=== PATIENT | female | born 1995 | race Caucasian/White ===

== ENCOUNTER 2016-07-16 23:38 | Emergency (ER) | payer OTHER ==
[~2016-07-16] VITALS: Ht 154.9 cm; Wt 55.0 kg
[2016-07-17 00:19] VITALS: Ht 154.9 cm; Wt 55.0 kg
--- NOTE | 2016-07-17 02:48 | ERD ---
ER Documentation Chief Complaint Date/Time DATE: 07/17/16 TIME: 02:45 Chief Complaint left flank pain HPI There is a 21-year-old female who presents the emergency department today complaining of left-sided flank pain. Patient states that one week ago she found out she was and had a positive test at a clinic in [place] as well. States she was told she is 6 weeks . Patient states that yesterday she started having some vaginal bleeding and had some clots passed. States the bleeding stopped today. Denies any fevers or chills, nausea or vomiting. ROS All systems reviewed and are negative except as per history of present illness. Medications Home Meds Active Scripts Acetaminophen* (Tylophen*) 500 Mg Capsule, 1 CAP PO Q6H Y for PAIN AND OR ELEVATED TEMP, #30 CAP Prov:MARY BETH BRAUN PA-C 07/17/16 Cephalexin* (Keflex*) 500 Mg Capsule, 500 MG PO QID for 7 Days, CAP Prov:MARY BETH BRAUN PA-C 07/17/16 Allergies Allergies: Coded Allergies: No Known Allergy (Unverified , 07/17/16) PMhx/Soc Medical and Surgical Hx: pt denies Medical Hx, pt denies Surgical Hx History of Surgery: Yes (Right leg surgery) Anesthesia Reaction: No Hx Neurological Disorder: No Hx Respiratory Disorders: No Hx Cardiac Disorders: No Hx Psychiatric Problems: No Hx Miscellaneous Medical Probl: No Hx Alcohol Use: No Hx Substance Use: No Hx Tobacco Use: No Smoking Status: Never smoker Physical Exam Vitals Vital Signs Date Time Temp Pulse Resp B/P Pulse Ox O2 Delivery O2 Flow Rate FiO2 07/17/16 00:19 99.7 85 20 127/82 100 Physical Exam Const: No acute distress Head: Atraumatic Eyes: Normal Conjunctiva ENT: Normal External Ears, Nose and Mouth. Neck: Full range of motion..~ No meningismus. Resp: Clear to auscultation bilaterally Cardio: Regular rate and rhythm, no murmurs Abd: Soft, non tender, non distended. Normal bowel sounds Skin: No petechiae or rashes Back: Left-sided flank pain. No midline tenderness. No CVA tenderness Ext: No cyanosis, or edema Neur: Awake and alert Psych: Normal Mood and Affect Result Diagram: 07/17/16 0310 07/17/16 0310 Results 24 hrs Laboratory Tests Test 07/17/16 03:10 07/17/16 04:00 Alanine Aminotransferase (ALT/SGPT) 19IU/L Albumin 4.5g/dl Albumin/Globulin Ratio 1.28 Alkaline Phosphatase 88IU/L Anion Gap 17 Aspartate Amino Transf (AST/SGOT) 26IU/L Basophils # 0.110^3/ul Basophils % 0.5% Beta HCG, Quantitative 13.1mIU/ml Blood Urea Nitrogen 7mg/dl Calcium Level 9.5mg/dl Carbon Dioxide Level 26mmol/L Chloride Level 106mmol/L Creatinine 0.56mg/dl Direct Bilirubin 0.00mg/dl Eosinophils # 0.110^3/ul Eosinophils % 0.5% Globulin 3.50g/dl Glucose Level 99mg/dl Hematocrit 39.1% Hemoglobin 13.3g/dl Indirect Bilirubin 0.1mg/dl Lymphocytes # 4.110^3/ul Lymphocytes % 38.0% Mean Corpuscular Hemoglobin 31.2pg Mean Corpuscular Hemoglobin Concent 33.9g/dl Mean Corpuscular Volume 92.0fl Mean Platelet Volume 8.6fl Monocytes # 0.810^3/ul Monocytes % 7.8% Neutrophils # 5.710^3/ul Neutrophils % 53.2% Nucleated Red Blood Cells # 0.010^3/ul Nucleated Red Blood Cells % 0.0/100WBC Platelet Count 13653^3/UL Potassium Level 4.0mmol/L Red Blood Count 4.2510^6/ul Red Cell Distribution Width 13.3% Sodium Level 145mmol/L Total Bilirubin 0.1mg/dl Total Protein 8.0g/dl White Blood Count 10.710^3/ul Urine Bacteria MANY Urine Bilirubin NEGATIVE Urine Clarity SLIGHTLY CLOUDY Urine Color LT. YELLOW Urine Glucose NEGATIVE% Urine Hemoglobin 3+ Urine Ketones NEGATIVE Urine Leukocyte Esterase NEGATIVE Urine Microscopic RBC 5-10/HPF Urine Microscopic WBC 5-10/HPF Urine Nitrite POSITIVE Urine Specific [place] 1.025 Urine Squamous Epithelial Cells FEW Urine Total Protein NEGATIVE Urine Urobilinogen 2.0 E.U./dL Urine pH 6.0 DIAGNOSTIC IMAGING REPORT Patient: JACQUES AMLENDAREZ : 1995 Age: 21 Sex: F MR #: [id number] DOS: 07/17/16 0233 Ordering MD: MARY BETH BRAUN PA-C Location: [facility] Room/Bed: PROCEDURE: Obstetrical ultrasound, limited. CLINICAL INDICATION: Vaginal bleeding. TECHNIQUE: Multiple sonographic images of the pelvis were obtained utilizing a transabdominal technique. The images were reviewed on a PACS workstation. COMPARISON: None. FINDINGS: The uterus is visualized and measures 6.0 x 3.7 x 5.1 cm. No abnormal uterine mass is identified. The endometrial echo complex is homogeneous and measures 6.6 mm. No intrauterine is identified. There is no evidence for free fluid. The right ovary has a normal echotexture and measures 3.0 x 1.8 x 2.0 cm. The left ovary has a normal echotexture and measures 2.8 x 1.1 x 1.5 cm. There is normal flow to both ovaries. No adnexal masses are identified. IMPRESSION: Unremarkable pelvic ultrasound. No intrauterine or extrauterine identified. Clinical beta-hCG correlation and follow-up is recommended. .Demetris Brooks MD, MD Date Time Electronically viewed and signed by .Demetris Brooks MD, MD on 07/17/2016 03:12 .T/ CC: MARY BETH BRAUN PA-C Procedures/MDM This is a 21-year-old female who presents to the emergency department today for some vaginal bleeding that started yesterday. Patient was also complaining of flank pain. She states she had a positive test at a clinic in [place]. I obtained a urine test that was negative however patient was told that she was by her clinic and given the complaint of vaginal bleeding I did do a complete OB workup per Laboratory work shows no elevated white blood cell count. She is not anemic. Platelets are within normal limits. Sodium is mildly elevated otherwise electro lites are within normal limits. Glucose within normal limits. Electrolytes are within normal limits per UA shows negative leukocyte esterase. Positive nitrates. 5-10 white blood cells. Patient will be treated with a prescription for Keflex for urinary tract infection. Beta quant hCG is 13.1 Rh status O+ Ultrasound shows no intrauterine or extrauterine identified. Unremarkable pelvic ultrasound. There is normal flow to both ovaries. There are no adnexal masses. Clinical beta quant correlation and follow-up is recommended. Patient has a very low beta quant and she has no IUP on ultrasound. I have explained to the patient that given her vaginal bleeding she may have had a possible miscarriage failed or early normal . Patient has no abdominal pain on physical exam of low suspicion for ectopic , tubo- ovarian abscess, ovarian torsion or any acute surgical abdomen.. I explained to the patient that she needs to get a repeat beta quant in 48 hours. Patient understood Patient declined any pain meds and nausea medications here in the emergency depart. Patient will be given a prescription for Tylenol and Keflex for home. At this time the patient is stable for discharge and outpatient management. Patient should follow up with their PCP in the next 1-2 days. They may return to the emergency department sooner for any persistent or worsening of symptoms. Patient understood and agreed with the plan. Departure Diagnosis: Primary Impression: Vaginal bleeding in patient at less than 20 weeks gestation Additional Impression: UTI (urinary tract infection) Urinary tract infection type: site unspecified Hematuria presence: with hematuria Qualified Code: N39.0 - Urinary tract infection with hematuria, site unspecified Condition: MARY BETH Robertson PA-C Jul 17, 2016 02:48
--- NOTE | 2016-07-17 03:12 | RADRPT ---
PROCEDURE: Obstetrical ultrasound, limited. CLINICAL INDICATION: Vaginal bleeding. TECHNIQUE: Multiple sonographic images of the pelvis were obtained utilizing a transabdominal kisha hnique. The images were reviewed on a PACS workstation. COMPARISON: None. FINDINGS: The uterus is visualized and measures 6.0 x 3.7 x 5.1 cm. No abnormal uterine mass is identified. T he endometrial echo complex is homogeneous and measures 6.6 mm. No intrauterine is identif ied. There is no evidence for free fluid. The right ovary has a normal echotexture and measures 3.0 x 1. 8 x 2.0 cm. The left ovary has a normal echotexture and measures 2.8 x 1.1 x 1.5 cm. There is norm al flow to both ovaries. No adnexal masses are identified. IMPRESSION: Unremarkable pelvic ultrasound. No intrauterine or extrauterine identified. Clinical beta-hCG correlation and follow-up i s recommended. .Demetris Brooks MD, Date Time Electronically viewed and signed by .Demetris Brooks MD, MD on 07/17/2016 03:12 .T/
[2016-07-17 03:23] LABS: BASOPHIL # 0.1 10^3/ul (0.0-0.1); BASOPHILS % 0.5 % (0.0-2.0); EOSINOPHILS # 0.1 10^3/ul (0.0-0.5); EOSINOPHILS % 0.5 % (0.0-7.0); HEMATOCRIT 39.1 % (37.0-47.0); HEMOGLOBIN 13.3 g/dl (12.0-16.0); LYMPHOCYTES # 4.1 10^3/ul (0.8-2.9); MEAN CORPUSCULAR HEMOGLOBIN 31.2 pg (29.0-33.0); MEAN CORPUSCULAR HGB CONC 33.9 g/dl (32.0-37.0); MEAN PLATELET VOLUME 8.6 fl (7.4-10.4); MONOCYTE # 0.8 10^3/ul (0.3-0.9); MONOCYTES % 7.8 % (0.0-13.0); NEUTROPHIL # 5.7 10^3/ul (1.6-7.5); NEUTROPHILS % 53.2 % (30.0-74.0); PLATELET COUNT 338 10^3/UL (140-440); RED BLOOD COUNT 4.25 10^6/ul (4.20-5.40); RED CELL DISTRIBUTION WIDTH 13.3 % (11.5-14.5); UNCORRECTED WBC 10.7 10^3/ul (4.8-10.8); WHITE BLOOD COUNT 10.7 10^3/ul (4.8-10.8)
[2016-07-17 03:26] LABS: CONDITION 1
[2016-07-17 03:33] LABS: ALBUMIN 4.5 g/dl (3.3-4.9)
[2016-07-17 03:35] LABS: CREATININE 0.56 mg/dl (0.44-1.00)
[2016-07-17 03:36] LABS: ALBUMIN/GLOBULIN RATIO 1.28; BILIRUBIN,INDIRECT 0.1 mg/dl (0-1.1); BILIRUBIN,TOTAL 0.1 mg/dl (0.2-1.3); CALCIUM 9.5 mg/dl (8.4-10.2)
[2016-07-17 04:53] LABS: ADD UMIC YES; URINE BILIRUBIN (Dip) NEGATIVE (NEGATIVE); URINE BLOOD (Dip) 3+ (NEGATIVE); URINE COLOR LT. YELLOW (YELLOW); URINE GLUCOSE (Dip) NEGATIVE (NEGATIVE); URINE KETONES (Dip) NEGATIVE (NEGATIVE); URINE LEUKOCYTE ESTERASE (Dip) NEGATIVE (NEGATIVE); URINE NITRITE (Dip) POSITIVE (NEGATIVE); URINE TOTAL PROTEIN (Dip) NEGATIVE (NEGATIVE); URINE UROBILINOGEN (Dip) 2.0 E.U./dL (0.1-1.0)
[2016-07-17 04:59] LABS: BACTERIA,URINE MANY; SQUAMOUS EPITHELIAL CELL,UR FEW
[2016-07-17] MEDS ORDERED: ACET500C5 PO (05:04)
[2016-07-17] MEDS ORDERED: CEPH-443 PO (05:04)
[2016-07-17 05:10] VITALS: BP 14/75; PULSE 75; RESP 18; TEMP 98.7
== END 2016-07-17 05:11 | disposition home or self-care (01) ==
LOC: FTE 23:38
DX: O20.9 Hemorrhage in early pregnancy, unspecified (principal); O23.41 Unspecified infection of urinary tract in pregnancy, first trimester; Z3A.01 Less than 8 weeks gestation of pregnancy
CPT/HCPCS: 76801; 80053; 81001; 81003; 84702; 85025; 86900; 86901

== ENCOUNTER → 2017-04-04 17:47 | Emergency (ER) | payer OTHER ==
[~2017-04-04 17:47] MED LIST: ACET500C5 PO; ACETAMINOPHEN 325 MG TAB ONE; CEPH-443 PO
--- NOTE | 2017-04-05 07:46 | RADRPT ---
PROCEDURE: US OB. CLINICAL INDICATION: Left sided pelvic pain. Positive TECHNIQUE: Transabdominal and transvaginal views of the pelvis are available for review. COMPARISON: No prior studies are available for comparison. FINDINGS: Uterus: No evidence of masses and normal in size. Endometrial cavity: Intrauterine gestational sac, yolk sac and pole are present with the foll owing information: [place]-rump length:3.66 cm heart rate:166 bpm Gestational sac:4.67 cm Ultrasound estimated gestational age:10 weeks 4 days No evidence of subchorionic hemorrhage Right ovary/adnexa: The ovary is not visualized. There is no evidence of adnexal mass or free flui d. Left ovary/adnexa: Ovarian size normal estimated at 3.4 x 1.9 x 1.8 cm. No ovarian or adnexal mass lesion is seen. Cul-de-sac: There is no free fluid. RPTAT:HJJR IMPRESSION: 1. Single live intrauterine with an estimated gestational age of 10 weeks 4 days, the est imated date of delivery 10/27/2017. 2. Unremarkable left ovary. The right ovary is not visualized. Physician Gina Date Time Electronically viewed and signed by Physician Gina on 04/04/2017 22:58 /
== END | disposition left against medical advice (07) ==
LOC: FTE 17:47 → E/R 17:47
DX: Z53.21 Procedure and treatment not carried out due to patient leaving prior to being seen by health care provider (principal)
CPT/HCPCS: 76805; Z7610

== ENCOUNTER 2017-08-22 11:09 | Outpatient (CLI) | END 2017-08-22 19:15 | disposition home or self-care (01) ==

== ENCOUNTER 2017-08-23 23:30 | Inpatient (IN) | END 2017-08-25 18:59 | disposition home or self-care (01) | DRG 778 ==

== ENCOUNTER 2017-09-13 12:39 | Outpatient (CLI) | END 2017-09-13 18:05 | disposition home or self-care (01) ==

== ENCOUNTER 2017-10-08 12:00 | Inpatient (IN) | END 2017-10-10 16:41 | disposition home or self-care (01) | DRG 775 ==